=== PATIENT | female | born 1950 | race Caucasian/White ===

== ENCOUNTER 2019-02-06 20:23 | Emergency (ER) | payer MEDICARE, OTHER ==
[~2019-02-06] VITALS: Ht 165.1 cm; Wt 50.0 kg
--- NOTE | 2019-02-06 20:45 | NUR ---
DR. RADER SPOKE WITH DAUGHTER AND DAUGHTER STATED THAT FOR APPROX 5 WEEKS AGO PT "FORGOT HOW TO WALK" AND BECAME BEDBOUND, HX OF DEMENTIA AND IS NOT ON ANY BLOOD THINNERS. TONIGHT WHEN DAUGHTER WAS CHANGING PT BRIEF THE PT WAS ACTING PER NORMAL SELF THEN ALL OF THE SUDDEN SHE WENT BLANK AND STARTED STARING OFF INTO SPACE, THEN BEGAN SPEAKING JIBBERISH, AFTER THIS SHE COULD NOT MOVE TO HELP DAUGHTER TURN HER. PRIOR TO THIS EVENT PT HAD TAKEN PO MEDICATIONS AND DRANK SOME MILK WITHOUT SWALLOWING DIFFICULTY. DAUGHTER STATES APPROX 10 YEARS AGO THE PT FELL AND BROKE ARM AND POSSIBLY HAD A STROKE AT THAT TIME.
--- NOTE | 2019-02-06 20:52 | Diagnostic Imaging Report ---
EXAMINATION: CT head without contrast. TECHNIQUE: Multiple contiguous axial images were obtained through the brain without the use of intravenous contrast. All CT scans use one or more of the following dose optimizing techniques: automated exposure control, MA and/or KvP adjustment based on a patient size and exam type, or iterative reconstruction. HISTORY: Strokelike symptoms COMPARISON: None available. FINDINGS: The zurita-white matter differentiation is normal. No mass effect or midline shift. There is age related cerebral atrophy with ex vacuo dilation of the ventricles. Periventricular white matter hypoattenuation is in keeping with chronic small vessel ischemic changes. Basilar cisterns are patent. There are no intra- or extra-axial fluid collections. There is no intracranial hemorrhage. The orbits are normal. Paranasal sinuses are normal. Mastoid air cells are clear. No soft tissue abnormality is seen. No osseus lesions or fractures are seen. IMPRESSION: 1. No acute intracranial abnormality. Dictated by: Dictated on workstation # [id number]
[2019-02-06 20:58] LABS: BASOPHILS % (AUTO) 1 % (0-10); EOSINOPHILS # (AUTO) 0.2 10^3/uL (0.0-0.3); EOSINOPHILS % (AUTO) 4 % (0-10); HEMATOCRIT 34 % (35-52); HEMOGLOBIN 10.5 G/DL (11.5-16.0); LYMPHOCYTES # (AUTO) 1.5 X 10^3 (1.0-4.0); LYMPHOCYTES % (AUTO) 37 % (12-44); MEAN CORPUSCULAR HEMOGLOBIN 23 PG (25-34); MEAN CORPUSCULAR HGB CONC 31 G/DL (32-36); MEAN CORPUSCULAR VOLUME 76 FL (80-99); MEAN PLATELET VOLUME 9.5 FL (7.4-10.4); MONOCYTES # (AUTO) 0.4 X 10^3 (0.0-1.0); MONOCYTES % (AUTO) 10 % (0-12); NEUTROPHILS % (AUTO) 49 % (42-75); PLATELET COUNT 254 10^3/uL (130-400); RED CELL DISTRIBUTION WIDTH 16.8 % (10.0-14.5); WHITE BLOOD COUNT 4.1 10^3/uL (4.3-11.0)
[2019-02-06 21:17] LABS: ALANINE AMINOTRANSFERASE 11 U/L (0-55); ALBUMIN 3.4 GM/DL (3.2-4.5); ALKALINE PHOSPHATASE 71 U/L (40-136); BILIRUBIN,TOTAL 0.2 MG/DL (0.1-1.0); BUN/CREATININE RATIO 17; CALCIUM 9.8 MG/DL (8.5-10.1); CARBON DIOXIDE 22 MMOL/L (21-32); CHLORIDE 106 MMOL/L (98-107); CREATININE SERUM 0.92 MG/DL (0.60-1.30); GFR ESTIMATED 60; GLUCOSE 107 MG/DL (70-105); SODIUM 140 MMOL/L (135-145); TOTAL PROTEIN 6.5 GM/DL (6.4-8.2)
[2019-02-06] MEDS ORDERED: NS IV 1000 ML 1,000 ML IV SCH ×3 (21:18→23:03)
[2019-02-06 21:27] LABS: FIBRIN DEGRADATION PRODUCTS 10.89 UG/ML (0.00-0.49); INR 0.9 (0.8-1.4)
[2019-02-06 21:29] LABS: BILIRUBIN,URINE NEGATIVE (NEGATIVE); CLARITY,URINE SLIGHTLY CLOUDY; COLOR,URINE YELLOW; GLUCOSE, URINE (UA) NEGATIVE (NEGATIVE); KETONES,URINE 1+ (NEGATIVE); LEUKOCYTE ESTERASE ,URINE 1+ (NEGATIVE); NITRITE,URINE NEGATIVE (NEGATIVE); PH,URINE 6 (5-9); PROTEIN,URINE 1+ (NEGATIVE)
[2019-02-06] MEDS ORDERED: ALTEPLASE 100 MG/VIAL (ACTIVASE) IV ONE (21:30)
--- NOTE | 2019-02-06 21:33 | ED Neurological Problem ---
General Chief Complaint: Neuro-Stroke Like Symptoms Stated Complaint: POSS CVA Source: family (DAUGHTER), EMS Exam Limitations: clinical condition (PT CONFUSED AND HAS HISTORY OF DEMENTIA) History of Present Illness Date Seen by Provider: Feb 06, 2019 Time Seen by Provider: 20:25 Initial Comments PT ARRIVES VIA [facility] FROM HOME PT HAD SUDDEN ONSET OF STROKE SYMPTOMS AT 1945 TONIGHT--DAUGHTER PRESENT AT ONSET. DAUGHTER STATES THAT SHE WAS CHANGING PT'S BRIEF ( HAS ONGOING INCONTINENCE ) AND PT WAS LAYING IN BED, AND PT AND DAUGHTER WERE TALKING AND "HAVING A COMPLETELY NORMAL CONVERSATION AND LAUGHING" PER DAUGHTER. DAUGHTER STATES SHE HAD ROLLED PT TO ONE SIDE AND PT HAD ASSISTED WITH THIS, AND DAUGHTER TOLD HER SHE NEEDED TO ROLL TO THE OTHER SIDE, AND PT "SUDDENLY WENT COMPLETELY BLANK--SHE STOPPED TALKING, COULDN'T MOVE, HER EYES WERE "LOOKING FUNNY" AND SHE STARTED TALKING AND NOT MAKING ANY SENSE" OR SAYING ANY INTELLIGIBLE WORDS. DAUGHTER STATES THAT 10 MINUTES PRIOR TO THIS, SHE GAVE PT HER EVENING MEDICATIONS AND WAS ABLE TO SWALLOW PILLS, WATER AND MILK WITHOUT ANY DIFFICULTY DAUGHTER STATES THAT PT HAS DEMENTIA, AND HER ONLY MEDICATIONS ARE FOR DEMENTIA. ARICEPT, SEROQUEL, DEPAKOTE. DAUGHTER STATES THAT UP UNTIL 5 WEEKS AGO, SHE WAS ABLE TO WALK ON HER OWN, AND SUDDENLY "SHE FORGOT HOW TO WALK-SHE FORGOT HOW TO PUT ONE FOOT IN FRONT OF THE OTHER" AND HAS BEEN BEDBOUND SINCE THEN. SHE DID NOT SEEK CARE WHEN THOSE SYMPTOMS BEGAN DAUGHTER STATES THAT APPROXIMATELY 10 YEARS AGO, SHE FELL/POSSIBLY COLLAPSED IN A PARKING LOT AND BROKE HER ARM. DAUGHTER STATES THAT SHE WAS TOLD AT THAT TIME THAT PT MAY HAVE HAD A STROKE AT THAT TIME, BUT NO FURTHER INVESTIGATION WAS DONE, NEVER BEEN SEEN BY A NEUROLOGIST, OR CONSTRUCTION SUPERVISOR, ETC. DAUGHTER REPORTS THAT PT DOES NOT TAKE ASPIRIN OR ANY BLOOD THINNERS SHE STATES PT HAS NO OTHER MEDICAL HISTORY BESIDES DEMENTIA. PCP: [facility]. Allergies and Home Medications Allergies Coded Allergies: No Allergy Information Available (Unverified , 02/06/19) Home Medications Divalproex Sodium 250 Mg Tablet.dr, 250 MG PO TID, (Reported) Donepezil HCl 23 Mg Tablet, 23 MG PO HS, (Reported) Quetiapine Fumarate 100 Mg Tablet, 100 MG PO HS, (Reported) Patient Home Medication List Home Medication List Reviewed: Yes Review of Systems Review of Systems Constitutional: other (PT IS CONFUSED AND UNABLE TO GIVE ANY INFORMATION) Psychiatric/Neurological: See HPI Past Opnlwqg-Tzsmyy-Qwmesk Hx Patient Social History Alcohol Use: Denies Use Recreational Drug Use: No Smoking Status: Never a Smoker Recent Foreign Travel: No Contact w/Someone Who Travel: No Past Medical History Surgeries: No Cardiac: No 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 oz. kg; BMI Method: General Appearance: no apparent distress, thin Neck: non-tender, full range of motion, supple Respiratory: normal breath sounds, no respiratory distress, no accessory muscle use Cardiovascular: normal peripheral pulses, regular rate, rhythm, no edema, no JVD, no murmur Peripheral Pulses: 1+ Dorsalis Pedis (R), 1+ Left Dors-Pedis (L), 1+ Radial Pulses (R), 1+ Radial Pulses (L) Gastrointestinal: soft Extremities: no pedal edema, normal capillary refill Neurologic/Psychiatric: other (LEFT SIDE FLACCID, WITH LEFT FACIAL DROOP. DOES HAVE SLIGHT WITHDRAW TO PAIN ON LEFT ARM AND LEFT LEG. PT HAS MUCH DIFFICULTY FOLLOWING COMMANDS, BUT FREELY RAISES RIGHT ARM AND IS ABLE TO HOLD UP FOR A FEW SECONDS. PT FREELY IS MOVING RIGHT LEG, BUT CANNOT HOLD IT OFF BED. PT HAS MILD GENERALIZED TREMORS--MORE PRONOUNCED ON RIGHT SIDE. PT HAS COMPLETE LEFT SIDED NEGLECT. BUT EYES AND HEAD IS TURNED TO RIGHT AND UP, YET LOOKS AROUND--BUT ONLY TO RIGHT SIDE. PT DOES NOT MAKE ANY EYE CONTACT, EVEN WITH STANDING DIRECTLY IN FRONT OF HER, ON HER RIGHT SIDE. PT IS UNABLE TO STATE WHAT COLOR HAIR I HAVE OR WHAT COLOR CLOTHES I AM WEARING (WHICH IS ORANGE). PT RAMBLES ON NON- SENSICALLY AT TIMES TO NO ONE IN PARTICULAR, EVEN WHEN NO ONE IS IN THE ROOM---AT TIMES COMPLETE UNINTELLIGIBLE WORDS/SOUNDS, AT TIMES WORDS ARE FORMED BUT COMPLETELY NON-SENSICAL, AND THEN AT TIMES APPEARS LUCID AND IS ABLE TO ANSWER VERY SIMPLE QUESTIONS SUCH NAME AND DATE OF . CONFUSED TO TIME, PLACE, SITUATION. AGAIN, IS NOT REALLY ABLE TO FOLLOW ANY DIRECT COMMANDS. ) Crainal Nerves: No abnormal gag reflex; facial droop; No tongue deviation to R Motor/Sensory: weak motor strength LUE, weak motor strength LLE Skin: normal color, warm/dry Focused Exam Lactate Level 02/06/19 22:40: Lactic Acid Level 2.79*H Lactic Acid Level Laboratory Tests Test 02/06/19 22:40 Lactic Acid Level 2.79 MMOL/L (0.50-2.00) *H Progress/Results/Core Measures Results/Orders Lab Results Laboratory Tests Test 02/06/19 20:50 02/06/19 21:15 02/06/19 22:40 Range/Units White Blood Count 4.1 L 4.3-11.0 10^3/uL Red Blood Count 4.47 4.35-5.85 10^6/uL Hemoglobin 10.5 L 11.5-16.0 G/DL Hematocrit 34 L 35-52 % Mean Corpuscular Volume 76 L 80-99 FL Mean Corpuscular Hemoglobin 23 L 25-34 PG Mean Corpuscular Hemoglobin Concent 31 L 32-36 G/DL Red Cell Distribution Width 16.8 H 10.0-14.5 % Platelet Count 254 130-400 10^3/uL Mean Platelet Volume 9.5 7.4-10.4 FL Neutrophils (%) (Auto) 49 42-75 % Lymphocytes (%) (Auto) 37 12-44 % Monocytes (%) (Auto) 10 0-12 % Eosinophils (%) (Auto) 4 0-10 % Basophils (%) (Auto) 1 0-10 % Neutrophils # (Auto) 2.0 1.8-7.8 X 10^3 Lymphocytes # (Auto) 1.5 1.0-4.0 X 10^3 Monocytes # (Auto) 0.4 0.0-1.0 X 10^3 Eosinophils # (Auto) 0.2 0.0-0.3 10^3/uL Basophils # (Auto) 0.0 0.0-0.1 10^3/uL Prothrombin Time 13.0 12.2-14.7 SEC INR Comment 0.9 0.8-1.4 Activated Partial Thromboplast Time 29 24-35 SEC D-Dimer 10.89 H 0.00-0.49 UG/ML Sodium Level 140 135-145 MMOL/L Potassium Level 4.0 3.6-5.0 MMOL/L Chloride Level 106 98-107 MMOL/L Carbon Dioxide Level 22 21-32 MMOL/L Anion Gap 12 5-14 MMOL/L Blood Urea Nitrogen 16 7-18 MG/DL Creatinine 0.92 0.60-1.30 MG/DL Estimat Glomerular Filtration Rate 60 BUN/Creatinine Ratio 17 Glucose Level 107 H 70-105 MG/DL Calcium Level 9.8 8.5-10.1 MG/DL Corrected Calcium 10.3 H 8.5-10.1 MG/DL Total Bilirubin 0.2 0.1-1.0 MG/DL Aspartate Amino Transf (AST/SGOT) 21 5-34 U/L Alanine Aminotransferase (ALT/SGPT) 11 0-55 U/L Alkaline Phosphatase 71 40-136 U/L Troponin I < 0.028 <0.028 NG/ML Total Protein 6.5 6.4-8.2 GM/DL Albumin 3.4 3.2-4.5 GM/DL Valproic Acid (Depakene) Level 65.0 50.0-100.0 UG/ML Urine Color YELLOW Urine Clarity SLIGHTLY CLOUDY Urine pH 6 5-9 Urine Specific [place] 1.020 1.016-1.022 Urine Protein 1+ H NEGATIVE Urine Glucose (UA) NEGATIVE NEGATIVE Urine Ketones 1+ H NEGATIVE Urine Nitrite NEGATIVE NEGATIVE Urine Bilirubin NEGATIVE NEGATIVE Urine Urobilinogen NORMAL NORMAL MG/DL Urine Leukocyte Esterase 1+ H NEGATIVE Urine RBC (Auto) 3+ H NEGATIVE Urine RBC NONE /HPF Urine WBC 5-10 H /HPF Urine Crystals PRESENT H /LPF Urine Amorphous Sediment FEW JUNG URATES H /LPF Urine Bacteria MODERATE H /HPF Urine Casts NONE /LPF Urine Mucus SMALL H /LPF Urine Culture Indicated YES Lactic Acid Level 2.79 *H 0.50-2.00 MMOL/L My Orders Orders - GUILLE RADER DO Cbc With Automated Diff (02/06/19 20:26) Protime With Inr (02/06/19) Partial Thromboplastin Time (02/06/19:) Comprehensive Metabolic Panel (02/06/19) Fibrin Degradation Products (02/06/19) Troponin I (02/06/19) Ua Culture If Indicated (02/06/19) Chest 1 View, Ap/Pa Only (02/06/19) Catheter(Urinary) Insert & Ass 03,15 (02/06/19) Ekg Tracing (02/06/19) Accucheck Stat ONCE (02/06/19) Ed Iv/Invasive Line Start (02/06/19) Ed Iv/Invasive Line Start (02/06/19) Vital Signs Stroke Patient Q15M (02/06/19) Ct Head Wo-R/O Stroke (02/06/19:) O2 (02/06/19:) Intake & Output 06,14,22 (02/06/19:) Monitor-Rhythm Ecg Trace Only (02/06/19) Dysphagia Screening Tool (02/06/19:) I-Stat Bedside Testing (02/06/19:) Ct Angio Head/Neck (02/06/19 21:02) Alteplase (Activase) (Activase Injection (02/06/19 21:30) Post Thrombolytic Adminstratio (02/06/19:18) Ed Iv/Invasive Line Start (02/06/19 21:18) Ns Iv 1000 Ml (Sodium Chloride 0.9%) (02/06/19 21:18) Iohexol Injection (Omnipaque 350 Mg/Ml 1 (02/06/19 21:45) Ns (Ivpb) (Sodium Chloride 0.9% Ivpb Bag (02/06/19 21:45) Received Contrast (Hold Metformin- Contr (02/06/19 21:45) End Tidal Co2 (02/06/19 21:37) Urine Culture (02/06/19 21:15) Ed Iv/Invasive Line Start (02/06/19 21:51) Ns Iv 1000 Ml (Sodium Chloride 0.9%) (02/06/19 21:51) Lorazepam Injection (Ativan Injection) (02/06/19 22:00) Lactic Acid Analyzer (02/06/19 22:14) Blood Culture (02/06/19 22:14) Ceftriaxone For Iv Use (Rocephin For I (02/06/19 22:15) Ceftriaxone For Iv Use (Rocephin For I (02/06/19 22:44) Water (Sterile) For Injection (Sterile W (02/06/19 22:45) Valproic Acid (02/06/19 22:50) Ed Iv/Invasive Line Start (02/06/19 23:03) Ns Iv 1000 Ml (Sodium Chloride 0.9%) (02/06/19 23:03) Medications Given in ED Current Medications Medications Dose Ordered Sig/Marjorie Route Start Time Stop Time Status Last Admin Dose Admin Alteplase, Recombinant (0.9mg/ kg-max 90mg) with ... ONCE ONCE IV 02/06/19 21:30 02/06/19 21:31 DC 02/06/19 22:45 40.5 MG Ceftriaxone Sodium 1000 mg/ Sterile Water 10 ml @ 200 mls/hr ONCE ONCE IV 02/06/19 22:15 02/06/19 23:54 DC 02/06/19 22:47 200 MLS/HR Iohexol 100 ml ONCE ONCE IV 02/06/19 21:45 02/06/19 21:46 DC 02/06/19 21:37 75 ML Lorazepam 0.25 mg ONCE ONCE IVP 02/06/19 22:00 02/06/19 22:01 DC 02/06/19 21:57 0.25 MG Sodium Chloride 100 ml ONCE ONCE IV 02/06/19 21:45 02/06/19 21:46 DC 02/06/19 21:37 80 ML Vital Signs/I&O 02/06/19 02/06/19 02/06/19 02/06/19 20:25 21:25 23:05 23:53 Pulse 78 86 103 Resp 18 18 18 B/P (MAP) 119/72 (88) 116/80 116/65 (92) Pulse Ox 93 93 O2 Delivery Nasal Cannula Nasal Cannula Nasal Cannula O2 Flow Rate 2.00 2.00 2.00 02/07/19 00:00 Intake Total 2110 ml Balance 2110 ml Progress Progress Note : Progress Note 2039--DAUGHTER HERE, AND I DID TALK WITH HER BRIEFLY AND DISCUSSED PT'S CONDITION, DAUGHTER IS GOING HOME TO GET PT'S MEDICATIONS SHE DOES NOT KNOW WHAT THEY ARE. STATES SHE WILL BE BACK IN "20 -30 MINUTES" 2129--DAUGHTER NOT BACK YET--NO PHONE NUMBER LEFT WITH STAFF 2199--DAUGHTER IS STILL NOT BACK, PT HAS SOME MINOR MOVEMENT OF RIGHT ARM. PT DOES SEEM A LITTLE MORE COHERENT AT THIS TIME, IN REGARDS TO HAVING INTELLIGIBLE SPEECH. HOWEVER,PT WITH RAPIDLY INCREASING AGITATION, SCREAMING AND YELLING WITH BP READINGS, ETC. PT YELLING THAT SHE IS GOING "TO JUST SHOOT HERSELF BECAUSE IT HURTS" AND IS THREATENING STAFF BECAUSE IT HURTS. 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 PT GIVEN ATIVAN 0.25 MG IV DUE TO RAPIDLY INCREASING AGITATION WITH SIGNIFICANT IMPROVEMENT. 2234--DAUGHTER IS NOW BACK. SHE AGREES TO TPA. CONSENT SIGNED. SHE STATES THAT PT IS TO BE DNR/DNI. SHE ALSO STATES THAT SHE DOES NOT WANT ANYTHING MORE AGGRESSIVE TREATMENT DONE OTHER THAN TPA/MEDICATIONS, TO IMPROVE PT'S SYMPTOMS. DOES NOT WANT SURGERY OR ANY INVASIVE INTERVENTIONS DONE, PT'S CONDITION AND QUALITY OF LIFE ARE VERY POOR. DAUGHTER NOW STATES THAT DEMENTIA ACTUALLY IS VERY ADVANCED--HAS BEEN "REALLY BAD" FOR THE LAST 5 YEARS AND GETTING WORSE, AND SPEECH IS JIBBERISH ALOT OF THE TIME, AND PT IS MEAN, COMBATIVE, HATEFUL, ETC. THE LARGE MAJORITY OF THE TIME. DAUGHTER STATES THAT PT'S MENTATION NOW IS ABOUT HER NORMAL BASELINE FOR THIS TIME OF DAY, HER SPEECH IS JIBBERISH AND UNINTELLIGIBLE, AND SHE GETS SLEEPY AROUND THIS TIME OF EVENING "AFTER SHE HAS HAD HER MEDICATION" DAUGHTER NOW STATES THAT SHE HAD TO QUIT HER JOB IN ORDER TO GIVE 24 HOUR TOTAL CARE, AND PT HAS LIVED WITH HER FOR OVER A YEAR. SHE STATES THAT SHE HAS DISCUSSED HOSPICE CARE WITH SOMEONE, FOR ASSISTANCE WITH PROVIDING ROUTINE ADL'S TO PT, ETC. BUT HAS NOT ACTUALLY CONTACTED ANY ONE OR HAD ANY KIND OF HOSPICE OR HOME HEALTH REFERRAL OR EVALUATION AT ANY TIME. Initial ECG Impression Date: Feb 06, 2019 Initial ECG Impression Time: 21:20 Initial ECG Rate: 79 Initial ECG Rhythm: Normal Sinus Initial ECG Comparisson: No Previous ECG Available Diagnostic Imaging Comments CXR--NO ACUTE PROCESS, PER RADIOLOGIST REPORT CT HEAD--NO ACUTE PROCESS, PER RADIOLOGIST REPORT AT 2101 CT ANGIOGRAM HEAD/CERVICAL SPINE--OCCLUSION OF BOTH RIGHT M2 ARTERIES PROXIMALLY, JUST PAST BIFURCATION OF M1. PER RADIOLOGIST REPORT VIA PHON AT 2156 Reviewed: Reviewed by Me, Discussed w/Radiologist Departure Communication (Admissions) NO ICU BEDS AVAILABLE HERE 2102--CALLED [facility]. [facility] NEUROLOGIST 2104--SPOKE WITH DR. AMADOR. HE ADVISES TO GIVE TPA, PT IS A CANDIDATE AND HAS NO CONTRAINDICATIONS. DAUGHTER IS NOT HERE AT THIS TIME, WILL HAVE TO WAIT FOR HER TO GIVE CONSENT. WILL CALL HIM BACK WITH FURTHER INFORMATION ABOUT PT REGARDING CODE STATUS, AND HOW AGGRESSIVE THAT THE DAUGHTER WOULD LIKE PT'S TREATMENT TO BE. 2239--CALLED [facility] 2240--SPOKE WITH DR. AMADOR, AND DISCUSSED DAUGHTER'S WISHES --AGREES TO TPA AND ANY NECESSARY MEDICATIONS, BUT DOES NOT WANT AGGRESSIVE OR INVASIVE TREATMENTS. HE ACCEPTS PT FOR ADMIT TO ICU. NO ADDITIONAL ORDERS/RECOMMENDATIONS AT THIS TIME. 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 Referrals: UNKNOWN (PCP/Family) Primary Care Physician GUILLE RADER DO Feb 06, 2019 21:33 POS
--- NOTE | 2019-02-06 21:36 | Diagnostic Imaging Report ---
EXAMINATION: Chest 1 view HISTORY: Paralysis FINDINGS: No comparison available. Patient is rotated to the right. The lungs are clear. No edema. No pneumonia. No pleural effusion. No pneumothorax. Heart is normal in size. IMPRESSION: 1. Clear lungs. Dictated by: Dictated on workstation # [id number]
[2019-02-06 21:37] LABS: AMORPHOUS SEDIMENT,UR FEW AMOR URATES /LPF; BACTERIA,URINE MODERATE /HPF
[2019-02-06] MEDS ORDERED: NS 100 ML (IVPB) BAG IV ONE (21:45)
[2019-02-06] MEDS ORDERED: IOHEXOL 350 MG/ML 100 ML (OMNIPAQUE 350) VIAL IV ONE (21:45)
[2019-02-06] MEDS ORDERED: HOLD METFORMIN - RECEIVED CONTRAST 20 ML VIAL IV SCH (21:45)
[2019-02-06] MEDS ORDERED: LORazepam INJ 2 MG/ML (ATIVAN) VIAL IVP ONE (22:00)
--- NOTE | 2019-02-06 22:01 | Diagnostic Imaging Report ---
EXAMINATION: CT angiography head and neck with and without contrast. TECHNIQUE: After intravenous administration of contrast, thin section axial CT angiography of the head and neck was performed. Source data was reformatted into 3D MIP projections. All CT scans use one or more of the following dose optimizing techniques: automated exposure control, MA and/or KvP adjustment based on a patient size and exam type, or iterative reconstruction. HISTORY: Left-sided weakness COMPARISON: None available. FINDINGS: There is focal occlusion of both right M2 vessels just past the bifurcation of the right M1. The left middle cerebral artery is normal. The posterior cerebral arteries are normal. The anterior cerebral arteries are normal. There is no large vessel occlusion. No aneurysm or vascular malformation is seen. The origins of the carotid arteries are normal. There are normal carotid bifurcations bilaterally. Internal carotid artery course and caliber is normal without stenosis or aneurysm. Vertebral artery origins are normal. No stenosis is seen in the vertebral arteries. The zurita-white matter differentiation is normal. No mass effect or midline shift. The ventricles are normal in size and configuration. Basilar cisterns are patent. There are no intra- or extra-axial fluid collections. There is no intracranial hemorrhage. The orbits are normal. Paranasal sinuses are normal. Mastoid air cells are clear. No soft tissue abnormality is seen. No osseus lesions or fractures are seen. No lymphadenopathy is seen in the neck. Pharynx and larynx appear normal. Salivary glands are symmetric. Musculature and fascia planes are normal. Limited views of the superior thorax are unremarkable. No osseous lesions or fractures are seen. IMPRESSION: 1. 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 Critical findings were communicated to Dr. Richter by Dr. Blankenship on 02/06/2019 at 9:58 PM. Dictated by: Dictated on workstation # [id number]
[2019-02-06] MEDS ORDERED: cefTRIAXone FOR IV USE 1,000 MG in WATER (STERILE) FOR INJECTION 10 ML IV ONE (22:15)
[2019-02-06] MEDS ORDERED: cefTRIAXone 1,000 MG IV (ROCEPHIN) VIAL ONE (22:44)
[2019-02-06] MEDS ORDERED: WATER (STERILE) FOR INJECTION 10 ML ONE (22:45)
[2019-02-06] MEDS ORDERED: QUET100T PO (23:03)
[2019-02-06] MEDS ORDERED: DIVA250T2 PO (23:04)
[2019-02-06] MEDS ORDERED: DONE23TA PO (23:05)
[2019-02-06 23:53] VITALS: BP 116/65
== END 2019-02-06 23:53 | disposition short-term general hospital (02) ==
LOC: EDBD 20:24 → ER 20:24
DX: I63.511 Cerebral infarction due to unspecified occlusion or stenosis of right middle cerebral artery (principal); G81.04 Flaccid hemiplegia affecting left nondominant side; F03.90 Unspecified dementia, unspecified severity, without behavioral disturbance, psychotic disturbance, mood disturbance, and anxiety
CPT/HCPCS: 36415; 51702; 70450; 70496; 70498; 71045; 80053; 80164; 81000; 83605; 84484; 85025; 85379; 85610; 85730; 87040; 87088; 92977; 93005; 93041; 99291; 99292